=== PATIENT | male | born 1995 | race Asian ===

== ENCOUNTER 2018-05-13 15:23 | Emergency (ER) | payer OTHER ==
[2018-05-13] MEDS ORDERED: NS 1,000 ML IV ONE (16:37)
[2018-05-13] MEDS ORDERED: LORazepam 2 MG/ML INJ IVP ONE (16:37)
--- NOTE | 2018-05-13 16:38 | EDPHY ---
H & P Stated Complaint: 2 days of intermittant chest pain. Time Seen by Provider: 05/13/18 16:30 HPI/ROS: HPI: This is a 22-year-old male who presents with Chief Complaint: 2 days of intermittent chest pain. Location: Anterior left-sided chest Quality: Pain Duration: 2 days Signs and Symptoms: no shortness of breath at rest, no shortness of breath on exertion, no cough, + chest pain, no palpitations, no lower extremity edema, no wheezing, no orthopnea, no paroxysmal nocturnal dyspnea, no fever, no injury/ trauma, no hemoptysis, no carpal pedal spasms, + cardiac awareness Timing: Gradually worsening Severity: Moderate Context: Patient is a student at [employer] presents from the student health clinic with complaints of 2 day history of left sided anterior chest pain that is nonradiating in nature and described as mild-to- moderate the worse today. Patient reports that he smoked marijuana performed a Bong hits last night he uses a vaporizer and nicotine every 1-2 hours and smokes daily, he snorted cocaine and drank alcohol 3 days ago. He reports that he has used cocaine in the past without feeling chest pain.. Patient travel to week and half ago from [facility] to [place], [place]. He denies any shortness of breath, nausea, vomiting, fever, cough, wheezing, lower extremity edema, calf pain. No history of lung disease. While at [facility], EKG showed normal sinus rhythm with T-wave changes in lead 2, lead 3 and AVF. Denies family cardiac history. Nothing makes the chest pain better or worse. Modifying Factors: None Comment: ROS: A comprehensive 10 system review of systems is otherwise negative aside from elements mentioned in the history of present illness. MEDICAL/SURGICAL/SOCIAL HISTORY: Medical history: Acne, Takes Accutane. Surgical history: Denies Social history: Student at [employer]. Originally from [facility]. Admits to marijuana, cocaine, tobacco use. CONSTITUTIONAL: Extremely well-appearing slightly anxious adult male, awake and alert, no obvious distress HEENT: Atraumatic and normocephalic, PERRL, EOMI. Nares patent; no rhinorrhea; no nasal mucosal edema. Tympanic membranes clear. Oropharynx clear, no exudate and moist pink mucosa. Airway patent. No lymphadenopathy. No meningismus. Cardiovascular: Normal S1/S2, regular rate, regular rhythm, without murmur rub or gallop. PULMONARY/CHEST: Symmetrical and nontender. Clear to auscultation bilaterally. Good air movement. No accessory muscle usage. ABDOMEN: Soft, nondistended, nontender, no rebound, no guarding, no peritoneal signs, no masses or organomegaly. No CVAT. EXTREMITIES: 2/2 pulses, strength 5/5, no deformities, no clubbing, no cyanosis or edema. NEUROLOGICAL: no focal neuro deficits. GCS 15. SKIN: Warm and dry, no erythema. no rash. Good capillary refill. Source: Patient, RN/MD Exam Limitations: No limitations - Personal History Current Tetanus Diphtheria and Acellular Pertussis (TDAP): Yes - Medical/Surgical History Hx Asthma: No Hx Chronic Respiratory Disease: No Hx Diabetes: No Hx Cardiac Disease: No Hx Renal Disease: No Hx Cirrhosis: No Hx Alcoholism: No Hx HIV/AIDS: No Hx Splenectomy or Spleen Trauma: No Other PMH: Denies - Social History Smoking Status: Current every day smoker Constitutional: Initial Vital Signs Temperature (C) 36.6 C 05/13/18 15:29 Heart Rate 79 05/13/18 15:29 Respiratory Rate 16 05/13/18 15:29 Blood Pressure 132/90 H 05/13/18 15:29 O2 Sat (%) 95 05/13/18 15:29 O2 Delivery Mode Room Air Allergies/Adverse Reactions: No Known Allergies Allergy (Unverified 05/13/18 15:32) Home Medications: Medication Instructions Recorded NK [No Known Home Meds] 05/13/18 Medical Decision Making - Diagnostics Imaging Results: Imaging Impressions Chest X-Ray 05/13/18 16:38 Impression: Normal. ED Course/Re-evaluation: Vital signs reviewed and stable upon arrival. IV access, laboratory studies, chest x-ray, EKG ordered Patient given 1 L normal saline and IV Ativan 1 mg 1654: Notified by [facility] [employer] that CHEST X RAY DONE today- CD sent to imaging! 1702: Chest x-ray my read shows no opacity, no effusion, no pneumothorax, no widened mediastinum. EKG interpreted by attending shows normal sinus rhythm with nonspecific ST changes in V2 V3 V4 and V5 and flattened T-waves. This is likely early repolarization and not quinn ischemia. 1743: Labs reviewed. No signs of leukocytosis/anemia/platelet dysfunction/OBI/ electrolyte imbalance/VTE/ACS. 1805: Reassessed patient who reports complete relief of symptoms. Patient will be discharged home with Cardiology follow-up as needed. This patient was seen under the supervision of my secondary supervising physician. I evaluated care for this patient with attending. Discussed this patient with Dr. Tristan who did not see the patient. Differential Diagnosis: Chest pain including but not limited to myocardial ischemia, pulmonary embolus, chest wall pain, pleural inflammation and pulmonary infectious causes. - Data Points Laboratory Results: Laboratory Results 05/13/18 16:45 05/13/18 16:45 05/13/18 05/13/18 05/13/18 16:51 16:45 16:45 WBC RBC Hgb Hct MCV MCH MCHC RDW Plt Count MPV Neut % (Auto) Lymph % (Auto) [place] % (Auto) Eos % (Auto) Baso % (Auto) Nucleat RBC Rel Count Absolute Neuts (auto) Absolute Lymphs (auto) Absolute Monos (auto) Absolute Eos (auto) Absolute Basos (auto) Absolute Nucleated RBC Immature Gran % Immature Gran # D-Dimer < 0.27 ug/mLFEU ug/mLFEU (0.00-0.50) Sodium 138 mEq/L mEq/L (135-145) Potassium 3.8 mEq/L mEq/L (3.5-5.2) Chloride 107 mEq/L mEq/L (97-110) Carbon Dioxide 24 mEq/l mEq/l (22-31) Anion Gap 7 mEq/L mEq/L (6-14) BUN 10 mg/dL mg/dL (7-23) Creatinine 1.0 mg/dL mg/dL (0.7-1.3) Estimated GFR > 60 Glucose 90 mg/dL mg/dL (70-100) Calcium 9.5 mg/dL mg/dL (8.5-10.4) POC Troponin I 0.00 ng/mL ng/mL (0.00-0.08) 05/13/18 16:45 WBC 6.88 10^3/uL 10^3/uL (3.80-9.50) RBC 5.40 10^6/uL 10^6/uL (4.40-6.38) Hgb 16.1 g/dL g/dL (13.7-17.5) Hct 45.8 % % (40.0-51.0) MCV 84.8 fL fL (81.5-99.8) MCH 29.8 pg pg (27.9-34.1) MCHC 35.2 g/dL g/dL (32.4-36.7) RDW 12.0 % % (11.5-15.2) Plt Count 238 10^3/uL 10^3/uL (150-400) MPV 9.7 fL fL (8.7-11.7) Neut % (Auto) 52.7 % % (39.3-74.2) Lymph % (Auto) 36.8 % % (15.0-45.0) [place] % (Auto) 8.0 % % (4.5-13.0) Eos % (Auto) 1.2 % % (0.6-7.6) Baso % (Auto) 1.0 % % (0.3-1.7) Nucleat RBC Rel Count 0.0 % % (0.0-0.2) Absolute Neuts (auto) 3.63 10^3/uL 10^3/uL (1.70-6.50) Absolute Lymphs (auto) 2.53 10^3/uL 10^3/uL (1.00-3.00) Absolute Monos (auto) 0.55 10^3/uL 10^3/uL (0.30-0.80) Absolute Eos (auto) 0.08 10^3/uL 10^3/uL (0.03-0.40) Absolute Basos (auto) 0.07 10^3/uL 10^3/uL (0.02-0.10) Absolute Nucleated RBC 0.00 10^3/uL 10^3/uL (0-0.01) Immature Gran % 0.3 % % (0.0-1.1) Immature Gran # 0.02 10^3/uL 10^3/uL (0.00-0.10) D-Dimer Sodium Potassium Chloride Carbon Dioxide Anion Gap BUN Creatinine Estimated GFR Glucose Calcium POC Troponin I Medications Given: Discontinued Medications Sodium Chloride (Ns) 1,000 mls @ 0 mls/hr IV EDNOW ONE; Wide Open PRN Reason: Protocol Stop: 05/13/18 16:38 Last Admin: 05/13/18 17:07 Dose: 1,000 mls Lorazepam (Ativan Injection) 1 mg IVP EDNOW ONE Stop: 05/13/18 16:38 Last Admin: 05/13/18 17:08 Dose: 1 mg Point of Care Test Results: Chemistry 05/13/18 16:51 POC Troponin I 0.00 ng/mL ng/mL (0.00-0.08) Departure - Departure Disposition: Home, Routine, Self-Care Clinical Impression: Cocaine use, Tobacco use disorder, Atypical chest pain Condition: Good Instructions: Cocaine Abuse (ED), Noncardiac Chest Pain (ED) Additional Instructions: Please refrain from using caffeine, cocaine, tobacco, marijuana. These drugs can actually cause chest pain. Consume a minimum of 8-10 glasses of water or electrolyte fluid replacement drinks that include Gatorade, Powerade, Pedialyte. Follow-up with Cardiology as needed for return of symptoms. Referrals: DECLAN Watkins,. [Clinic] - As per Instructions Marco A Alvarado MD [Medical Doctor] - As per Instructions
[2018-05-13 17:21] LABS: PLATELET COUNT 238 10^3/uL (150-400)
[2018-05-13 18:23] VITALS: BP 112/67
--- NOTE | 2018-05-14 13:42 | CPEKG ---
Test Reason : OPEN Blood Pressure : / mmHG Vent. Rate : 065 BPM Atrial Rate : 065 BPM P-R Int : 135 ms QRS Dur : 090 ms QT Int : 387 ms P-R-T Axes : 047 078 -02 degrees QTc Int : [address] elev, probable normal early repol pattern Confirmed by Wil López ([id number]) on 05/14/2018 1:42:28 PM Referred By: WIL LÓPEZ Confirmed By:Wil López
== END 2018-05-13 18:22 | disposition home or self-care (01) ==
DX: R07.89 Other chest pain (principal); F17.200 Nicotine dependence, unspecified, uncomplicated; F14.90 Cocaine use, unspecified, uncomplicated; E86.9 Volume depletion, unspecified
CPT/HCPCS: 84484-ER; 96374; J2060